=== PATIENT | male | born 1960 | race Caucasian/White ===

== ENCOUNTER → 2020-03-21 09:50 | Outpatient (CLI) | payer OTHER, SELFPAY ==
[2020-03-24 06:53] LABS: COVID19 Sendout Not Detected (Not Detect)
== END ==
PROVIDERS: PCP Family Medicine; Visit Provider Physician Assistant
DX: Z11.59 Encounter for screening for other viral diseases (principal)
CPT/HCPCS: 87635

== ENCOUNTER → 2020-03-21 10:05 | Outpatient (CLI) | payer OTHER, SELFPAY ==
[2020-03-21 11:24] LABS: Add Manual Diff / Slide Review NO; Basophils Absolute Auto 200 /uL (0-100); Basophils Percent Auto 2.2 % (0-2); Eosinophils Absolute Auto 500 /uL (0-450); Eosinophils Percent Auto 7.2 % (2-4); Hematocrit 37.5 % (41-53); Hemoglobin 12.9 g/dL (13.5-17.5); Lymphocytes Absolute Auto 1900 /uL (1100-4500); Lymphocytes Percent Auto 25.8 % (25-40); Mean Corpuscular HGB Conc 34.3 % (30-36); Mean Corpuscular Hemoglobin 30.4 PG (26-34); Mean Corpuscular Volume 88.6 fL (80-100); Monocytes Absolute Auto 600 /uL (0-900); Monocytes Percent Auto 7.5 % (3-14); Neutrophils Absolute Auto 4300 /uL (1500-7000); Neutrophils Percent Auto 57.3 % (50-75); Platelet Count 227 X10^3/uL (150-400); Red Blood Cell Count 4.23 X10^6/uL (4.5-5.9); Red Cell Distribution Width 12.8 % (11.6-14.8); White Blood Cell Count 7.5 X10^3/uL (4.5-11.0)
[2020-03-21 11:58] LABS: Hemoglobin A1C% w Est Avg Glu 5.3 % (4.0-6.0)
[2020-03-21 12:04] LABS: BUN Creatinine Ratio 13.2 (6-22); Blood Urea Nitrogen 23 mg/dL (9-20); Calcium 9.2 mg/dL (8.4-10.2); Carbon Dioxide 25 mmol/L (22-32); Chloride 110 mmol/L (98-107); Estimated Glomerular Filt Rate 40.2 mL/min (>60); Glucose 77 mg/dL (80-110); HEMOLYSIS < 15 (0-50); Potassium 3.9 mmol/L (3.4-5.1); Sodium 144 mmol/L (137-145)
== END ==
PROVIDERS: Referring Provider Orthopaedic Surgery; Visit Provider Orthopaedic Surgery
DX: Z11.59 Encounter for screening for other viral diseases (principal); Z01.812 Encounter for preprocedural laboratory examination; R73.9 Hyperglycemia, unspecified
CPT/HCPCS: 36415; 80048; 83036; 85025; 87635

== ENCOUNTER 2020-03-24 06:02 | Inpatient (IN) | payer OTHER, SELFPAY ==
[2020-03-10 13:50] VITALS: BMI 42.8
[2020-03-24] VITALS (18 sets, daily range): BP systolic 88–149; BP diastolic 55–99; PULSE 78–91; RESP 7–94; TEMP 35.8–37.5; O2SAT 10–98; BMI 42.8
[2020-03-24] MEDS: LACTATED RINGERS 1,000 ML 42 ML IV ×2 (07:14→09:17)
--- NOTE | 2020-03-24 07:24 | DI.RAD.S_ITS ---
PROCEDURE: XR KNEE LT 1TO2V INDICATIONS: Post op total knee TECHNIQUE: 2 view(s) of the knee acquired. COMPARISON: None. FINDINGS: Bones: Patient is status post knee joint arthroplasty. Hardware components are in expected positions. Visualized bony structures are intact. Soft tissues: Overlying postoperative changes are noted. IMPRESSION: Expected postoperative appearance Dictated by: Chucho Jaimes M.D. on 03/24/2020 at 11:59 Approved by: Chucho Jaimes M.D. on 03/24/2020 at 12:00
[2020-03-24] MEDS: CELECOXIB 200 MG CAPSULE PO (07:33)
[2020-03-24] MEDS: PREGABALIN 75 MG CAPSULE PO (07:33)
[2020-03-24] MEDS: ACETAMINOPHEN 325 MG TABLET 975 MG PO (07:33)
--- NOTE | 2020-03-24 07:33 | PM.PREOP ---
Pre-operative Note COVID-19 COVID-19 status: Negative Result date/Date tested (Pos, Neg/Pending): 03/21/20 Interval Note History & Physical reviewed/Exam performed by Physician: Yes Changes to H&P: No
[2020-03-24] MEDS: CEFAZOLIN 2 GM/100 ML FROZ.PIGGY IV (08:30)
--- NOTE | 2020-03-24 08:46 | SUR.OPER ---
Supine on padded OR bed. Pillow under head, arms secured on padded armboards <90 degree abduction. Safety belt across torso above ileostomy site. Non-operative leg secured with tape over blanket over lower leg. Operative leg secured in DeMayo positioner. Foam padded brace at thigh of operative leg.
[2020-03-24] MEDS: BUPIVACAINE 0.25% W/ EPI 30 ML VIAL 60 ML INJ (09:16)
[2020-03-24] MEDS: MORPHINE 4 MG/ML INJ INJ (09:16)
[2020-03-24] MEDS: BUPIVACAINE LIPOSOME 266 MG/20 ML VIAL INJ (09:16)
[2020-03-24] MEDS: TRANEXAMIC ACID 1,000 MG VIAL 1000 MG INJ ×2 (09:18→10:16)
--- NOTE | 2020-03-24 10:03 | SUR.OPER ---
ileostomy check at 0830, 0920, and 1002. No need to empty at those times. Will recheck when drapes are removed.
--- NOTE | 2020-03-24 10:42 | PM.OP.1 ---
Operative Date/Time/Diagnoses Date of procedure: 03/24/20 Time of procedure: 10:42 Pre-op diagnosis: Left knee posttraumatic osteoarthritis Post-op diagnosis: same Procedure & Clinicians Procedure: 1. Left total knee replacement 2. Removal of deep hardware (femoral and tibial screws) Same procedure as scheduled: Yes Indications: The patient has had progressively worsening left knee pain with radiographic changes consistent with arthritis. He has previously had an ACL reconstruction and has both tibial and femoral interference screws and a backup large fragment partially-threaded screw and washer on the femur. Non-operative management has failed and the patient has requested total knee replacement. The risks, benefits and alternatives to surgery were discussed with the patient prior to proceeding. Risks discussed included, but were not limited to, failure to relieve pain, stiffness, infection, nerve damage, deep venous thrombosis, pulmonary embolism, stroke, coma, heart attack, permanent paralysis and , as well as the potential need for eventual revision of the prosthetic. Surgeon: Mike Drew Finish Saw Operator: Igor Bullock Click Yes if Unassisted: No Anesthesia Type: General and Local Operative Notes Findings: Severe tricompartmental osteoarthritis with most severe findings in the medial side. The tibial screw and the femoral back up large frag screw did interfere with placement of the guides and prosthetics. Closure Type: primary Specimen(s): none sent Prosthetic devices, grafts, tissues, transplants, or devices: Implants used in this procedure were manufactured by the [employer] and [employer] and included the BCS II Journey total knee replacement with a size 6 Oxinium left femur, a size 6 left non porous tibial base plate, a 9 mm cross-linked polyethylene tibial insert and a 35 mm oval Suyapa II patellar component Applied: implant(s) Estimated Blood Loss (mL): 150 Blood products transfused: none Tourniquet time (min): 85 Procedure in detail: The patient was seen in the pre-operative area, where the left knee was identified as the operative site and this was marked with my initials. The patient received pre-operative antibiotics, and was taken to the operating room and placed on the operative table in the supine position. After satisfactory anesthesia, a excellence coach out was performed. The left leg was encircled with a tourniquet about the proximal thigh, and the leg was prepared from the toes to the tourniquet with ChloroPrep in the usual fashion and draped through sterile drapes. The leg was elevated and exsanguinated with Eschmark bandage and the tourniquet inflated to 250 mmHg pressure. The knee was approached through an approximately 18 cm incision centered over the patella and carried into the knee through a medial parapatellar arthrotomy. The anterior osteophytes and soft tissues were removed. The rotational landmarks of Stephen's line and the transepicondylar axis were marked on the femur with electrocautery, and intramedullary guide holes for the femur and tibia were created. In attempting to make the femoral hole, the drill made contact with the screw crossing across the metaphysis. This was exposed by going down the lateral side of the femur through the standard total knee incision. The screw proved somewhat difficult to remove as the threads did not bite the lateral cortex and therefore it stripped and did not advance. A stab wound was made more in line with the screw to the held during this part of the procedure but eventually the screw was removed through the standard incision in by putting traction on the screw with a Cyclone while removing it and getting it to engage the threads in the cortex. The spiked washer was also removed. The distal femoral cut was made in 6 degrees of valgus using the intramedullary guide at the primary cut setting. The proximal tibial cut was then made using the intramedullary guide, taking 9 mm of bone off the less involved side. The cut was initiated and then it made contact with the tibial interference screw. The area around the screw was exposed by cutting a sq out of the resected tibial bone to expose the screw which was then easily removed. The tibial cut was then completed. The extension gap was checked and the rotation of the femoral component confirmed with the gap balancing blocks, flexion was somewhat tight so we did move the femoral prosthetic 1 mm anterior. The anterior, posterior and chamfer cuts were then made. The posterior osteophytes and soft tissues were then removed. The posterior capsule was injected with part of a mixture of 60 ml 0.25% Marcaine mixed with 20 ml Exparel and 4 mg of morphine for post-operative pain control. The remainder of this mixture was injected into the capsule and subcutaneous tissues during cement curing. The tibia was prepared with the rotation set by an extra medullary guide. Trial tibial and femoral components were then placed and the intercondylar notch cut through the femoral trial. The remaining femoral interference screw did not interfere with this. Range of motion was 0-135 degrees, with good stability throughout the range. The patella was then cut to accommodate the patellar prosthetic. There was a tendency for the patella to dislocate laterally in deep flexion so a lateral release was performed using the ?pie crust technique?. This considerably improved patellar tracking. The trials were then removed, and the femoral hole plugged with a bone plug. The bone was prepared with pulsatile lavage, and dried with a sponge. Cement was applied and the final prosthetics placed. Excess cement was removed during and after cement curing. After confirming there was no extruded cement posteriorly, the final tibial insert was placed. The knee was copiously irrigated and the tourniquet deflated. Hemostasis was obtained. The capsule was closed with interrupted # 2 polyester sutures. The subcutaneous layer was closed with 3-0 Vicryl, and the skin with a running 3-0 V-Lock suture and SteriStrips. An Aquacel Ag dressing was applied and the patient was taken to recovery having tolerated the procedure well. Complications: none Post-operative Condition: stable Disposition: PACU Plan for aftercare: The patient will be maintained on a standard total knee replacement protocol with weight bearing as tolerated. The patient will receive aspirin and sequential compression devices for DVT prophylaxis. The patient will be discharged home when safe for the home environment.
--- NOTE | 2020-03-24 11:19 | SUR.PHASEI ---
Patient woke up very confused and moving all over the bed. Attempting to help patient relax, but patient pushes away all care. Will not keep nasal canula in on face, used blow by O2 and patient tolerating it better.
[2020-03-24] MEDS: BUTORPHANOL 1 MG/ML VIAL 0.5 MG IV (11:29)
[2020-03-24] MEDS: fentaNYL 100 MCG/2 ML INJ IV (11:40)
[2020-03-24] MEDS: ALBUTEROL 2.5 MG/3 ML NEB (ADULT) INH (11:44)
--- NOTE | 2020-03-24 13:19 | SUR.PHASEI ---
Apnea resolved. Pt alert and oriented. VSS.
[2020-03-24] MEDS: LACTATED RINGERS 1,000 ML 100 ML IV ×2 (13:40→23:31)
[2020-03-24] MEDS: OXYCODONE IR 5 MG TABLET PO ×2 (14:53→19:00)
[2020-03-24] MEDS: ACETAMINOPHEN 325 MG TABLET 650 MG PO ×2 (14:53→21:17)
--- NOTE | 2020-03-24 15:47 | PC.NURSE ---
Patient arrived from PACU approx 1330, oriented to room and call light with call light placed within reach. VSS, on 2L NC, denies shortness of breath. States his pain level to his left knee is about a 7/10 which he reports is about the level of pain he has been having chronically from the arthritis in his knee, ice packs in place and declines further intervention at that time. Patient is eager to get moving with PT. patient has +CMS, and able to bend and lift left leg off bed. Ileostomy with appliance in place and intact to Right abdomen. LINDSEY dressing with RAF wrap to left knee in place without drainage. Urinal within reach, monitor for void post op, patient denies need to void at this time.
--- NOTE | 2020-03-24 16:46 | PT.IIE ---
Current Diagnoses Unilateral post-traumatic osteoarthritis, left knee (03/24/20) Surgery Performed Operation Date: 03/24/20 07:45 Actual Procedures p Total Knee Arthroplasty, removal of deep screws(Left) - Mike Drew MD Surgical History (Last Updated 03/10/20 @ 14:23 by Valeri Flowers, SAM) History of left knee surgery (Acute ~05/1990) Hx of arthroscopy of left knee (Acute) Hx of arthroscopy of right knee (Acute ~2005) Hx of ileostomy (Acute 1983) Medical History (Last Updated 03/10/20 @ 14:29 by Valeri Flowers RN) Asthma (Acute) Brain injury (Acute 1978) HTN (hypertension) (Acute) Laceration (Acute 1978) Osteoarthritis (Acute) Physical Therapy Inpatient Evaluation/Re-Eval M1 PT/OT-IP Prior Functional Status Start: 03/24/20 15:02 Freq: NEEDED Status: Active Protocol: Document 03/24/20 16:09 (Rec: 03/24/20 16:45 [id number]) Medical Review Prior Functional Status Medical History Reviewed Yes Diet/Fluid Consistency Regular Communication no deficits noted. Mobility and Gait independent witohut AD for home and community mobility. Activities of Daily Living and IADL's independent for ADLs and IADLs without AD. pt had a colonstomy sx 35 years ago and has a colonstomy bag so he does not sit down for toileting. Prior Functional Level (Other details) Pt stated he has a very low bed at home that will need assistance from son to stand up after surgery Social History Household Members children Living Arrangements House Number of Floors (Floors) One Floor Number of Stairs To Enter/Railing? 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 Pt's sister and brother in law live 6 houses down and will able to come in to assist after work hours. 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 M2 PT-IP Current Condition Start: 03/24/20 15:02 Freq: NEEDED Status: Active Protocol: Document 03/24/20 16:09 (Rec: 03/24/20 16:45 [id number]) Physical Therapy Current Condition Current Condition Evaluation Date 03/24/20 Treatment Diagnosis L TKA, difficulty in walking Onset Date 03/24/20 Weight Bearing Status Weight Bearing Status Weight Bear as Tolerated M3 PT-IP Subjective Start: 03/24/20 15:02 Freq: NEEDED Status: Active Protocol: Document 03/24/20 16:09 (Rec: 03/24/20 16:45 [id number]) Subjective Physical Therapy Visit Type Type Initial Evaluation Visit Start Time 15:05 Visit Stop Time 16:05 Total Visit Minutes 60 Notes sister Rebecca attended session. Number of SEO COORDINATOR Visits 0 Physical Therapy Visit Comments Patient Comments I want to use the bathroom Patient Goals To regain ROM and mobility and go home. Therapy Pain Assessment Pain When Pain Assessed During Mobility Pain Present Pain Present Pain Reported Location Knee Intensity 5 Scale Used Numeric (0 - 10) Description Aching,Acute Pain Management Techniques Timing of Activity with Medications M4 PT-IP Mobility and Gait Start: 03/24/20 15:02 Freq: NEEDED Status: Active Protocol: Document 03/24/20 16:09 (Rec: 03/24/20 16:45 [id number]) PT-Bed Mobility Assessment Supine to Sit Supine to Sit Contact Guard Assistance, Bedrails Scooting Scooting to Edge of Bed Contact Guard Assistance PT-Transfer Assessment Sit to and From Stand Sit to and from Stand Moderate Assistance,1 Person Assistance,Use of Upper Extremities Equipment Transfer Assistive Device Gait Belt,Front Wheeled Walker Orthotic/Prosthetic Devices or Brace: No Transfers Transfer Destination Bed,Chair,Toilet Transfer Technique Stand Step Pivot Transfer Ability Level of Assist Minimal Assistance,Moderate Assistance,Use of Upper Extremities Comments Mobility Comments Pt was in bed upon PT arrival. pain at 5/10 but no other discomfort. AxOx 4 and pt was very talkative regarding POC, role of PT, types of therex. Pt initially completed supine to long sit by pulling from R bed rail. He then slowly pivot his LLE towards EOB CGA. He scooted towards EOB slowly and his L knee was able to flex up to ~90 degrees. Pt then stood up with a stagger stance with 1UE pushed off from bed and pulled from FWW, this PT needed to stabilize his walker and provided mod A. He then practiced lateral weight shift with FWW CGA. Pt was able to amb slowly after with step to gait and mostly WB through UEs and RLE. He slowly amb to bathroom with CGA and able to void minimally in standing. Pt also disposed his waste from colostomy bag. He then turned around with FWW and slowly amb back to chair. He was able to slowly increase WB through LLE and pain managed to be at 5/10. Pt then sat down with proper use of handrests to descend with a stagger stance. Pt overall was quite SOB during mobility but able to recover in a short period of time. Pt sat in chair comfortably with call light within reach. Spent approx 20 mins after to answer pt's and his sister questions. Gait Assessment Gait Gait Assistance Required: Contact Guard Assist Distance (Feet) 8 Able to Maintain Weight Bearing Status Yes During Gait Assistive Devices Assistive Device Gait Belt,Front Wheeled Walker Orthotic/Prosthetic Devices or Brace: No Gait Deviations General Gait Pattern Antalgic,Decreased Stride Length,Decreased Feet Clearance,Festinating,Lateral Trunk Lean,Step-to Gait Factors Limiting Gait Function Factors Limiting Gait Function Decreased Activity Tolerance, Decreased Strength,Limited Range of Motion,Pain,Poor Balance,Poor Safety Awareness, Respiratory Distress Comments Gait Comments see mobility comments. Stair Climbing Assessment Comments Stair Climbing Comments did not assess PT-Balance Assessment Sitting Balance and Reactions Static Sitting Balance Ability Normal Dynamic Sitting Balance Ability Good Standing Balance and Reactions Static Standing Balance Ability Good Dynamic Standing Balance Ability Fair Device Used FWW M5 PT-IP Objective Assessments Start: 03/24/20 15:02 Freq: NEEDED Status: Active Protocol: Document 03/24/20 16:09 (Rec: 03/24/20 16:45 [id number]) Orientation Orientation/Cognition Level of Alertness Alert Orientation Name,Age,Birthday,Month,Date, Year,Day of Week,Place, Situation Language Function Ability No Deficits Noted Safety Awareness Understands Safety Issues Memory Description No Deficits Noted Gross Range of Motion Upper Extremity ROM Assessment Within Functional Limits Lower Extremity ROM Assessment Left Impaired Impairments ~ 90 degrees with active flexion Strength Upper Extremity Strength Assessment Within Functional Limits Lower Extremity Strength Assessment Left Impaired Hip 4/5 Knee 3-/5 Coordination Assessment Gross Coordination Gross Coordination WNL Sensation Assessment Sensation Gross Sensation WNL M6 PT-IP Treatment Start: 03/24/20 15:02 Freq: NEEDED Status: Active Protocol: Document 03/24/20 16:09 (Rec: 03/24/20 16:45 [id number]) Physical Therapy Treatment Exercises Exercises Ankle Pumps,Gluteal Sets,Quad Sets,Straight Leg Raises Education Education Provided Precautions,Weight Bearing Status,Post-Op Packet,Safety Other Treatments Other Treatment Performed education pt and his sister on POC, role of PT, types of rehab therex. Demonstration to them regarding how to educate pt's son to assist pt at home : use gait belt above abdomen and stand either in front/ L side to provide assistance during sit <>stand M7 PT-IP Assessment and Plan Start: 03/24/20 15:02 Freq: NEEDED Status: Active Protocol: Document 03/24/20 16:09 (Rec: 03/24/20 16:45 [id number]) PT Summary Assessment and Plan Potential Rehabilitation Potential Good Status of Condition at Evaluation Evolving Summary Impairments Pain,ROM,Strength,Balance, Coordination,Sensation,Bed Mobility,Transfers,Gait, Activity Tolerance Assessment Summary Pt is a 59 yo male s/p POD1 L TKA. 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 Upon assessment, pt required min to mod A for mobility. He primarily WB through RLE and UEs on walker but his pain was well managed at 5/10. However, pt'son has intellectual disability and pt 's bed and chair are mostly low surfaces, along with 4 CHANDA for front entrance. These factors increase burden of care from his son. This PT will conduct a CG training session with pt's sister ( visitor restriction d/t YOVANNY) so both of them can transfer CG skills to his son. Pt also might need home health depends on his progress. Goals Bed Mobility Goal Contact Guard Assistance Transfer Goal Contact Guard Assistance,Front Wheeled Walker Gait Goal Front Wheel Walker Gait Distance 100 Other Goals 4 CHANDA with R rail up and L rail down. SPC might be needed Days to Meet Goals 3 Frequency of Treatment Frequency Of Treatment Twice a Day Treatment Plan Physical Therapy Treatment Plan Bed Mobility Training,Transfer Training,Gait Training, Therapeutic Exercise,Balance Retraining,Post Op Education, Discharge Planning,Hot or Cold Pack,Neuromuscular Re-ed Other Recommendations and Next Treatment mobility as venessa Focus stair climbing if possible 4 CHANDA with R rail up and L rail down. SPC might be needed Recommendations To Nursing Amount of Assist Needed 1 Person Assist Discharge Recommendations PT Discharge Recommendations Home with Assistance,Home Health,Outpatient PT Transportation Needs at Discharge Private Vehicle
[2020-03-24] MEDS: LOSARTAN 50 MG TABLET 100 MG PO (21:16)
[2020-03-24] MEDS: ASPIRIN EC 81 MG TABLET PO (21:16)
--- NOTE | 2020-03-24 21:39 | PC.NURSE ---
Shift note: Pt awake, alert and oriented x4 - up to chair for most of this shift. Pain controlled with Tylenol and oxy 5mg x1. CMS to L leg intact, LINDSEY dressing dry and intact without visible drainage, rosanna wrap maintained and ice bags to L knee for comfort. IV in progress, LR @ 100me/hr, taking oral liquids well and had gen diet for dinner. Pt manages his ostomy without difficulty.
[2020-03-24] MEDS: DOCUSATE 100 MG CAPSULE PO (23:31)
[2020-03-25 00:33] VITALS: BP 92/53; PULSE 79; RESP 20; TEMP 36.7; O2SAT 94
[2020-03-25 03:59] VITALS: BP 139/68; PULSE 96; RESP 20; TEMP 35.9; O2SAT 98
[2020-03-25 05:06] LABS: Hematocrit 31.9 % (41-53); Hemoglobin 10.7 g/dL (13.5-17.5)
[2020-03-25] MEDS: ACETAMINOPHEN 325 MG TABLET 650 MG PO ×2 (05:06→12:59)
[2020-03-25 07:52] VITALS: BP 116/61; PULSE 83; RESP 18; TEMP 36.7; O2SAT 99
--- NOTE | 2020-03-25 07:58 | PM.DS.1 ---
History of Present Illness History of Present Illness Date Patient Seen: 03/25/20 Time Patient Seen: 07:58 Chief complaint: Left Total Knee Arthroplasty Narrative: The history and physical is contained in the chart previously completed note. Please refer to that note for this information. Discharge Providers Provider Date of admission: 03/24/20 06:02 Discharge Date: 03/25/20 Primary care physician: Monique Meza MD Consults: 03/24/20 07:24 Consult to Anesthesiology Routine Comment: Consulting Provider: Anesthesiologist Reason for consultation: Regional block for post operative pain control 03/24/20 13:30 Consult to Discharge Planning Routine Comment: Consult to Physical Therapy Evaluate & Treat Comment: Physician Instructions: postop TKA protocol Discharge provider: Mike Drew MD Summary Hospital Course Discharge Diagnosis: 1. Posttraumatic arthritis, left knee 2. Post hemorrhagic anemia Hospital Course: The patient was admitted to the hospital and taken directly to the operating room on March 24, 2020. He underwent a left total knee replacement with removal of previously placed anterior cruciate ligament reconstruction hardware. He tolerated the procedure well and was comfortable on postoperative day 1. At the time of this dictation the plan is for him to go home later today after physical therapy. Status at Discharge Cognitive/behavioral status at discharge: oriented Functional status at discharge: uses cane/walker Overall status at discharge: patient is progressing back to baseline Time Spent with Patient Time spent: Less than 30 minutes Exam Vital Signs (past 8 hours): - 03/25/20 00:33 03/25/20 03:59 03/25/20 07:52 Temperature 98.1 F 96.7 F L 98.0 F Pulse Rate 79 96 H 83 Respiratory Rate 20 20 18 Blood Pressure 92/53 L 139/68 116/61 Pulse Oximetry 94 98 99 Oxygen Delivery Method Room Air Oxygen Flow Rate 0 Narrative Exam Narrative: Left knee wound is dressed with minimal drainage on the bandage. Calf is soft. Light touch and motion are intact in the left lower extremity. He is sitting in a chair demonstrating 90? flexion at the time of the exam. Objective Labs Result Diagrams: 03/25/20 04:45 Labs: Laboratory Results - last 24 hr 03/25/20 04:45 Hgb 10.7 L Hct 31.9 L Discharge Assessment & Plan Assessment and Plan Assessment: Stable postoperative day 1 status post left total knee replacement and removal of hardware. Plan of Treatment: Plan is for physical therapy today with likely discharge later in the day. Follow-up will be at my office in 10-14 days. Discharge prescriptions for oxycodone and Vistaril are on the chart. DVT prophylaxis will be with low-dose aspirin. Discharge Plan Discharge Plan Patient Disposition: Home Discharge orders & Medications Prescriptions: New acetaminophen 325 mg Tablet 650 mg PO TID 30 Days Qty: 180 RF: 0 aspirin 81 mg Tablet,Delayed Release (Dr/Ec) 81 mg PO BID 42 Days Qty: 84 RF: 0 oxycodone 5 mg Tablet 5 mg PO Q4H PRN (Reason: Pain, Moderate (4-6)) Qty: 40 RF: 0 hydroxyzine pamoate 25 mg Capsule 25 mg PO Q6HR PRN (Reason: Nausea) Qty: 30 RF: 0 Continued losartan 50 mg Tablet 100 mg PO BEDTIME RF: 0 meloxicam 15 mg Tablet 15 mg PO DAILY RF: 0 chlorthalidone 25 mg Tablet 12.5 mg PO DAILY RF: 0 tamsulosin 0.4 mg Capsule 0.4 mg PO DAILY RF: 0 albuterol sulfate 90 mcg/actuation Hfa Aerosol Inhaler 2 puff INHALATION Q4-6H PRN (Reason: Shortness Of Breath) RF: 0 Discontinued aspirin 81 mg Tablet,Delayed Release (Dr/Ec) 81 mg PO DAILY RF: 0 ibuprofen 200 mg Tablet 800 mg PO QID PRN (Reason: Pain (Scale Score 1-3)) RF: 0 Follow up/Referrals: Mike Drew MD [Physician] - 2 Weeks Monique Meza MD [Primary Care Provider] - Diet/Activity/Treatments Diet: Diet as Tolerated and Regular Activity: You may bear weight as tolerated on your left leg. Cold/Heat Therapy: Apply ice for 15 minutes every hour as needed for pain control to the left knee. Skin/Wound/Dressing Care Report to your healthcare provider any signs of infection, such as:: chills, fever, night sweats, increased pain, unusual drainage and unusual redness Dressing: Remove the Chano wrap and 3 days. You may shower with the deeper dressing in place. If the deeper dressing becomes saturated with either water or blood, please call the office. Visit Report/Discharge Packet Instructions: DI for Knee Replacement, DI for Prescription Opioid Use Stand Alone Forms: Surgery Discharge Discharge Data Primary Care Provider: Monique Meza VTE Deep Vein Thrombosis/Pulmonary Embolism Present on Admission: No
[2020-03-25] MEDS: ASPIRIN EC 81 MG TABLET PO (09:00)
[2020-03-25] MEDS: TAMSULOSIN 0.4 MG CAPSULE PO (09:01)
[2020-03-25] MEDS: MELOXICAM 7.5 MG TABLET 15 MG PO (09:01)
[2020-03-25] MEDS: CHLORTHALIDONE 25 MG TABLET 12.5 MG PO (09:02)
--- NOTE | 2020-03-25 12:18 | PT.IPTN ---
Current Diagnoses Unilateral post-traumatic osteoarthritis, left knee (03/24/20) Surgery Performed Operation Date: 03/24/20 07:45 Actual Procedures p Total Knee Arthroplasty, removal of deep screws(Left) - Mike Drew MD Physical Therapy Treatment Note M2 PT-IP Current Condition Start: 03/24/20 15:02 Freq: NEEDED Status: Active Protocol: Document 03/24/20 16:09 (Rec: 03/24/20 16:45 [id number]) Physical Therapy Current Condition Current Condition Evaluation Date 03/24/20 Treatment Diagnosis L TKA, difficulty in walking Onset Date 03/24/20 Weight Bearing Status Weight Bearing Status Weight Bear as Tolerated M3 PT-IP Subjective Start: 03/24/20 15:02 Freq: NEEDED Status: Active Protocol: Document 03/25/20 12:06 (Rec: 03/25/20 12:18 [id number]) Subjective Physical Therapy Visit Type Type Treatment Note Visit Start Time 09:34 Visit Stop Time 10:05 Total Visit Minutes 29 Number of NURSERY SUPERVISOR Visits 0 Physical Therapy Visit Comments Patient Comments I want to use the bathroom Patient Goals To regain ROM and mobility and go home. Therapy Pain Assessment Pain When Pain Assessed During Mobility Pain Present Pain Present Pain Reported Location Knee Intensity 3 Scale Used Numeric (0 - 10) Description Aching,Acute Pain Management Techniques Timing of Activity with Medications M4 PT-IP Mobility and Gait Start: 03/24/20 15:02 Freq: NEEDED Status: Active Protocol: Document 03/25/20 12:06 (Rec: 03/25/20 12:18 [id number]) PT-Transfer Assessment Sit to and From Stand Sit to and from Stand Contact Guard Assistance,1 Person Assistance,Use of Upper Extremities Equipment Transfer Assistive Device Gait Belt,Front Wheeled Walker Orthotic/Prosthetic Devices or Brace: No Transfers Transfer Destination Bed,Chair,Toilet Transfer Technique Stand Step Pivot Transfer Ability Level of Assist Contact Guard Assistance,1 Person Assistance,Use of Upper Extremities Comments Mobility Comments Pt was in the chair with ice packs on L knee. Pain at 3/10 and requested to use bathroom. Pt stood up with CGA by pushing off from chair armrests. He then amb with step to pattern and got to the front of toilet. Pt voided and emptied his ostomy. He then amb towards hallway and completed 1 lap of [facility]. Pt stated that he was able to WB 80% of the weight on LLE but he needed cues for heel strike. After that, t was w/c to end of [facility] [employer] [facility] for stair climbing .Pt completed 2 sets of 3 steps by using R rail and SPC on L UE to ascend; R rail and SPC on LUE to descend . Pt used step to pattern with CGA but slowly. He was w/c back to his room and used FWW to complete stand step pivot transfer to chair. Reviewed therex and call ligth placed within reach. Gait Assessment Gait Gait Assistance Required: Standby Assistance,Contact Guard Assist Distance (Feet) 130 Able to Maintain Weight Bearing Status Yes During Gait Assistive Devices Assistive Device Gait Belt,Front Wheeled Walker Orthotic/Prosthetic Devices or Brace: No Gait Deviations General Gait Pattern Antalgic,Decreased Stride Length,Decreased Feet Clearance,Festinating,Lateral Trunk Lean,Step-to Gait Factors Limiting Gait Function Factors Limiting Gait Function Decreased Activity Tolerance, Decreased Strength,Limited Range of Motion,Pain,Poor Balance,Poor Safety Awareness, Respiratory Distress Comments Gait Comments see mobility comments. Stair Climbing Assessment Evaluation Level of Assist On Stairs Contact Guard Assistance Devices Stair Climbing Assistive Devices Straight Cane,Right Railing Technique/Endurance Stair Climbing Direction Ascend and Descend Stair Climbing Technique Step to Step Number of Steps Climbed 3 Stair Climbing Set # Repetitions (reps) 2 Comments Stair Climbing Comments see mobility comments. PT-Balance Assessment Sitting Balance and Reactions Static Sitting Balance Ability Normal Dynamic Sitting Balance Ability Good Standing Balance and Reactions Static Standing Balance Ability Good Dynamic Standing Balance Ability Good Device Used FWW M5 PT-IP Objective Assessments Start: 03/24/20 15:02 Freq: NEEDED Status: Active Protocol: Document 03/24/20 16:09 (Rec: 03/24/20 16:45 [id number]) Orientation Orientation/Cognition Level of Alertness Alert Orientation Name,Age,Birthday,Month,Date, Year,Day of Week,Place, Situation Language Function Ability No Deficits Noted Safety Awareness Understands Safety Issues Memory Description No Deficits Noted Gross Range of Motion Upper Extremity ROM Assessment Within Functional Limits Lower Extremity ROM Assessment Left Impaired Impairments ~ 90 degrees with active flexion Strength Upper Extremity Strength Assessment Within Functional Limits Lower Extremity Strength Assessment Left Impaired Hip 4/5 Knee 3-/5 Coordination Assessment Gross Coordination Gross Coordination WNL Sensation Assessment Sensation Gross Sensation WNL M6 PT-IP Treatment Start: 03/24/20 15:02 Freq: NEEDED Status: Active Protocol: Document 03/24/20 16:09 (Rec: 03/24/20 16:45 [id number]) Physical Therapy Treatment Exercises Exercises Ankle Pumps,Gluteal Sets,Quad Sets,Straight Leg Raises Education Education Provided Precautions,Weight Bearing Status,Post-Op Packet,Safety Other Treatments Other Treatment Performed education pt and his sister on POC, role of PT, types of rehab therex. Demonstration to them regarding how to educate pt's son to assist pt at home : use gait belt above abdomen and stand either in front/ L side to provide assistance during sit <>stand M7 PT-IP Assessment and Plan Start: 03/24/20 15:02 Freq: NEEDED Status: Active Protocol: Document 03/25/20 12:06 (Rec: 03/25/20 12:18 [id number]) PT Summary Assessment and Plan Potential Rehabilitation Potential Good Status of Condition at Evaluation Stable Summary Impairments Pain,ROM,Strength,Balance, Coordination,Sensation,Bed Mobility,Transfers,Gait, Activity Tolerance Assessment Summary Pt has improved with amb distance and less assistance needed. He also completed stair climbing with 1 rail and SPC CGA. Will conduct CG training with his sister at 1 pm today prior to d/c Goals Bed Mobility Goal Contact Guard Assistance Transfer Goal Contact Guard Assistance,Front Wheeled Walker Gait Goal Front Wheel Walker Gait Distance 100 Other Goals 4 CHANDA with R rail up and L rail down. SPC might be needed Days to Meet Goals 3 Frequency of Treatment Frequency Of Treatment Twice a Day Treatment Plan Physical Therapy Treatment Plan Bed Mobility Training,Transfer Training,Gait Training, Therapeutic Exercise,Balance Retraining,Post Op Education, Discharge Planning,Hot or Cold Pack,Neuromuscular Re-ed Other Recommendations and Next Treatment mobility as venessa Focus stair climbing if possible 4 CHANDA with R rail up and L rail down. SPC might be needed Recommendations To Nursing Amount of Assist Needed 1 Person Assist Discharge Recommendations PT Discharge Recommendations Home with Assistance, Outpatient PT Transportation Needs at Discharge Private Vehicle
--- NOTE | 2020-03-25 13:37 | PT.IPTN ---
Current Diagnoses Unilateral post-traumatic osteoarthritis, left knee (03/24/20) Surgery Performed Operation Date: 03/24/20 07:45 Actual Procedures p Total Knee Arthroplasty, removal of deep screws(Left) - Mike Drew MD Physical Therapy Treatment Note M2 PT-IP Current Condition Start: 03/24/20 15:02 Freq: NEEDED Status: Active Protocol: Document 03/24/20 16:09 HH (Rec: 03/24/20 16:45 [id number]) Physical Therapy Current Condition Current Condition Evaluation Date 03/24/20 Treatment Diagnosis L TKA, difficulty in walking Onset Date 03/24/20 Weight Bearing Status Weight Bearing Status Weight Bear as Tolerated M3 PT-IP Subjective Start: 03/24/20 15:02 Freq: NEEDED Status: Active Protocol: Document 03/25/20 13:31 HH (Rec: 03/25/20 13:37 [id number]) Subjective Physical Therapy Visit Type Type Treatment Note Visit Start Time 13:02 Visit Stop Time 13:26 Total Visit Minutes 24 Notes pt sister attended CG training session Number of DATABASE SECURITY ADMINISTRATOR Visits 0 Physical Therapy Visit Comments Patient Comments Im ready to go home Therapy Pain Assessment Pain When Pain Assessed During Mobility Pain Present Pain Present Pain Reported M4 PT-IP Mobility and Gait Start: 03/24/20 15:02 Freq: NEEDED Status: Active Protocol: Document 03/25/20 13:31 HH (Rec: 03/25/20 13:37 [id number]) PT-Transfer Assessment Sit to and From Stand Sit to and from Stand Contact Guard Assistance,1 Person Assistance,Use of Upper Extremities Equipment Transfer Assistive Device Gait Belt,Front Wheeled Walker Orthotic/Prosthetic Devices or Brace: No Transfers Transfer Destination Bed,Chair Transfer Technique Stand Step Pivot Transfer Ability Level of Assist Contact Guard Assistance,1 Person Assistance,Use of Upper Extremities Comments Mobility Comments Pt was in chair upon PT arrival. His sister at bedside . Pt stood up with FWW with CGA and transferred himself to W/C safely. He was w/c to staircase for CG training. Pt completed 2 sets of 3 steps with R rail up and LUE with SPC ; R rail down with SPC on LUE. Pt completed it slowly with proper sequence and foot placement. No signs of LOB. Sister able to maintain CGA throught the trail. They both felt safe at this point. Pt was then w/c back to his room . Stair Climbing Assessment Evaluation Level of Assist On Stairs Contact Guard Assistance Devices Stair Climbing Assistive Devices Straight Cane,Right Railing Technique/Endurance Stair Climbing Direction Ascend and Descend Stair Climbing Technique Step to Step Number of Steps Climbed 3 Stair Climbing Set # Repetitions (reps) 2 Comments Stair Climbing Comments pt completed 1st trial with PT then 2nd trial with sister. Pt was safe but completed it slowly. Recommended pt to acquire quad cane to improve stability if needed. PT-Balance Assessment Sitting Balance and Reactions Static Sitting Balance Ability Normal Dynamic Sitting Balance Ability Good Standing Balance and Reactions Static Standing Balance Ability Good Dynamic Standing Balance Ability Good Device Used FWW M5 PT-IP Objective Assessments Start: 03/24/20 15:02 Freq: NEEDED Status: Active Protocol: Document 03/24/20 16:09 (Rec: 03/24/20 16:45 [id number]) Orientation Orientation/Cognition Level of Alertness Alert Orientation Name,Age,Birthday,Month,Date, Year,Day of Week,Place, Situation Language Function Ability No Deficits Noted Safety Awareness Understands Safety Issues Memory Description No Deficits Noted Gross Range of Motion Upper Extremity ROM Assessment Within Functional Limits Lower Extremity ROM Assessment Left Impaired Impairments ~ 90 degrees with active flexion Strength Upper Extremity Strength Assessment Within Functional Limits Lower Extremity Strength Assessment Left Impaired Hip 4/5 Knee 3-/5 Coordination Assessment Gross Coordination Gross Coordination WNL Sensation Assessment Sensation Gross Sensation WNL M6 PT-IP Treatment Start: 03/24/20 15:02 Freq: NEEDED Status: Active Protocol: Document 03/24/20 16:09 (Rec: 03/24/20 16:45 [id number]) Physical Therapy Treatment Exercises Exercises Ankle Pumps,Gluteal Sets,Quad Sets,Straight Leg Raises Education Education Provided Precautions,Weight Bearing Status,Post-Op Packet,Safety Other Treatments Other Treatment Performed education pt and his sister on POC, role of PT, types of rehab therex. Demonstration to them regarding how to educate pt's son to assist pt at home : use gait belt above abdomen and stand either in front/ L side to provide assistance during sit <>stand M7 PT-IP Assessment and Plan Start: 03/24/20 15:02 Freq: NEEDED Status: Active Protocol: Document 03/25/20 13:31 HH (Rec: 03/25/20 13:37 [id number]) PT Summary Assessment and Plan Potential Rehabilitation Potential Good Status of Condition at Evaluation Stable Summary Impairments Pain,ROM,Strength,Balance, Coordination,Sensation,Bed Mobility,Transfers,Gait, Activity Tolerance Progress Towards Goals Safe For Discharge Assessment Summary Completed CG training with pt' s sister. Pt completed stair climbing 3 steps x 2 set safely but slowly. Did recommend to get quad cane for better support if needed. They both felt safe to go home at this point. Frequency of Treatment Frequency Of Treatment Discharge Discharge Recommendations PT Discharge Recommendations Home with Assistance, Outpatient PT Transportation Needs at Discharge Private Vehicle
== END 2020-03-25 13:30 | disposition home or self-care (01) | DRG 470 ==
LOC: AC 09:09 → ICU 10:12
PROVIDERS: Admitting Provider Orthopaedic Surgery; PCP Family Medicine; Referring Provider Family Medicine; Visit Provider Orthopaedic Surgery
PROC: 0SRD0JZ Replacement of Left Knee Joint with Synthetic Substitute, Open Approach (ICD-10-PCS; CPT 27447; principal; 2020-03-24 07:45)
DX: M17.32 Unilateral post-traumatic osteoarthritis, left knee (principal); Z68.41 Body mass index [BMI] 40.0-44.9, adult; I10 Essential (primary) hypertension; J45.909 Unspecified asthma, uncomplicated; E66.01 Morbid (severe) obesity due to excess calories
CPT/HCPCS: 36415; 73560; 85014; 85018; 97116; 97161; 97530; 97535; C1776; A9270; C9290; J0595; J0690; J1100; J1170; J2250; J2270; J2405; J2704; J3010; J7613

== ENCOUNTER → 2020-05-27 10:25 | Outpatient (CLI) | payer OTHER, SELFPAY ==
[2020-03-24 14:33] VITALS: BMI 42.8
[2020-05-27 11:41] LABS: Add Manual Diff / Slide Review NO; Basophils Absolute Auto 200 /uL (0-100); Basophils Percent Auto 2.1 % (0-2); Eosinophils Absolute Auto 600 /uL (0-450); Eosinophils Percent Auto 7.6 % (2-4); Hematocrit 39.6 % (41-53); Lymphocytes Absolute Auto 1700 /uL (1100-4500); Lymphocytes Percent Auto 23.1 % (25-40); Mean Corpuscular HGB Conc 32.9 % (30-36); Mean Corpuscular Hemoglobin 29.3 PG (26-34); Mean Corpuscular Volume 89.1 fL (80-100); Monocytes Absolute Auto 500 /uL (0-900); Monocytes Percent Auto 7.2 % (3-14); Neutrophils Absolute Auto 4500 /uL (1500-7000); Platelet Count 257 X10^3/uL (150-400); Red Blood Cell Count 4.45 X10^6/uL (4.5-5.9); Red Cell Distribution Width 13.1 % (11.6-14.8); White Blood Cell Count 7.6 X10^3/uL (4.5-11.0)
[2020-05-27 12:02] LABS: BUN Creatinine Ratio 15.2 (6-22); Blood Urea Nitrogen 25 mg/dL (9-20); Calcium 8.9 mg/dL (8.4-10.2); Carbon Dioxide 23 mmol/L (22-32); Chloride 113 mmol/L (98-107); Estimated Glomerular Filt Rate 43.1 mL/min (>60); Glucose 92 mg/dL (80-110); HEMOLYSIS < 15 (0-50); Potassium 4.2 mmol/L (3.4-5.1); Sodium 142 mmol/L (137-145)
== END ==
PROVIDERS: Referring Provider Orthopaedic Surgery; Visit Provider Orthopaedic Surgery
DX: Z01.812 Encounter for preprocedural laboratory examination (principal)
CPT/HCPCS: 36415; 80048; 85025

== ENCOUNTER → 2020-06-14 08:37 | Outpatient (CLI) | payer OTHER, SELFPAY ==
[2020-03-24 14:33] VITALS: BMI 42.8
[2020-06-14 09:41] LABS: COVID19 -Nasal RAPID Negative (Negative)
== END ==
PROVIDERS: Visit Provider Physician Assistant
DX: Z11.59 Encounter for screening for other viral diseases (principal)
CPT/HCPCS: 87635

== ENCOUNTER 2020-06-16 10:42 | Day surgery (SDC) | payer OTHER, SELFPAY ==
[2020-03-24 14:33] VITALS: BMI 42.8
[2020-06-13 15:05] VITALS: BMI 42.3
[2020-06-16] VITALS (20 sets, daily range): BP systolic 114–152; BP diastolic 61–93; PULSE 80–107; RESP 10–22; TEMP 36.3–37.7; O2SAT 92–97; BMI 56.0
--- NOTE | 2020-06-16 11:00 | DI.RAD.S_ITS ---
PROCEDURE: XR KNEE RT 1TO2V INDICATIONS: post op films TECHNIQUE: 2 view(s) of the knee acquired. COMPARISON: [facility], CR, XR KNEE ARTHRITIC SERIES LT, 05/07/2020, 15:33. [facility], CR, XR KNEE LT 1TO2V, 03/24/2020, 10:57. FINDINGS: Bones: Patient is status post knee joint arthroplasty. Hardware components are in expected positions. Visualized bony structures are intact. Healed fracture of the proximal fibula. Soft tissues: Overlying postoperative changes are noted. IMPRESSION: Expected appearance of knee arthroplasty. Dictated by: Shahzad Hill M.D. on 06/16/2020 at 15:05 Approved by: Shahzad Hill M.D. on 06/16/2020 at 15:06
[2020-06-16] MEDS: ACETAMINOPHEN 325 MG TABLET 975 MG PO (11:38)
[2020-06-16] MEDS: PREGABALIN 75 MG CAPSULE PO (11:39)
[2020-06-16] MEDS: CELECOXIB 200 MG CAPSULE PO (11:39)
[2020-06-16] MEDS: LACTATED RINGERS 1,000 ML 42 ML IV ×2 (11:39→13:21)
--- NOTE | 2020-06-16 11:39 | SUR.PREOP ---
Dr Drew examined RLE and had a discussion with the patient about his scratches increased risk of infection. Patient stated that he wants to proceed with the surgery in spite of increased risk.
--- NOTE | 2020-06-16 11:48 | PM.PREOP ---
Pre-operative Note COVID-19 COVID-19 status: Negative Result date/Date tested (Pos, Neg/Pending): 06/14/20 Interval Note History & Physical reviewed/Exam performed by Physician: Yes Changes to H&P: No
--- NOTE | 2020-06-16 11:49 | P.OP_ITS ---
Operative Date/Time/Diagnoses Date of procedure: 06/16/20 Time of procedure: 14:26 Pre-op diagnosis: Right knee post traumatic osteoarthritis Post-op diagnosis: same Procedure & Clinicians Procedure: Right total knee replacement Same procedure as scheduled: Yes Indications: The patient has had progressively worsening right knee pain with radiographic changes consistent with arthritis. Non-operative management has failed and the patient has requested total knee replacement. The risks, benefits and alternatives to surgery were discussed with the patient prior to proceeding. Risks discussed included, but were not limited to, failure to relieve pain, stiffness, infection, nerve damage, deep venous thrombosis, pulmonary embolism, stroke, coma, heart attack, permanent paralysis and , as well as the potential need for eventual revision of the prosthetic. Surgeon: Mike Drew Ribbon Inker: Igor Bullock Anesthesia Type: General, Spinal and Local Operative Notes Findings: Severe tricompartmental osteoarthritis Closure Type: primary Specimen(s): none sent Prosthetic devices, grafts, tissues, transplants, or devices: Implants used in this procedure were manufactured by the [employer] and [employer] and included the BCS II Journey total knee replacement with a size 6 Oxinium left femur, a size 6 non porous tibial base plate with a 9 mm cross-linked polyethylene insert and a 35 mm oval Suyapa II patella. Applied: implant(s) Estimated Blood Loss (mL): 50 Blood products transfused: none Tourniquet time (min): 57 Procedure in detail: The patient was seen in the pre-operative area, where the patient identified the right knee as the operative site and this was marked with my initials. The patient received pre-operative antibiotics, and was taken to the operating room and placed on the operative table in the supine position. After satisfactory anesthesia, a multimedia coordinator out was performed. The right leg was encircled with a tourniquet about the proximal thigh, and the leg was prepared from the toes to the tourniquet with ChloroPrep in the usual fashion and draped through sterile drapes. The leg was elevated and exsanguinated with Eschmark bandage and the tourniquet inflated to 250 mmHg pressure. The knee was approached through an approximately 18 cm incision centered over the patella and carried into the knee through a medial parapatellar arthrotomy. The anterior osteophytes and soft tissues were removed. The rotational landmarks of Stephen's line and the transepicondylar axis were marked on the femur with electrocautery, and intramedullary guide holes for the femur and tibia were created. The distal femoral cut was made in 6 degrees of valgus using the intramedullary guide at the primary cut setting. The proximal tibial cut was then made using the intramedullary guide, taking 9 mm of bone off the less involved side. The extension gap was checked and the rotation of the femoral component confirmed with the gap balancing system. The anterior, posterior and chamfer cuts were then made. The posterior osteophytes and soft tissues were then removed. The posterior capsule was injected with part of a mixture of 60 ml 0.25% Marcaine mixed with 20 ml Exparel and 4 mg of morphine for post-operative pain control. The remainder of this mixture was injected into the capsule and subcutaneous tissues during cement curing. The tibia was prepared with the rotation set by an extra medullary guide. Trial tibial and femoral components were then placed and the intercondylar notch cut through the femoral trial. Range of motion was 0-130 degrees, with good stability throughout the range. The patella was then cut to accommodate the patellar prosthetic. There was no need for a lateral release. The trials were then removed, and the femoral hole plugged with a bone plug. The bone was prepared with pulsatile lavage, and dried with a sponge. Cement was applied and the final prosthetics placed. Excess cement was removed during and after cement curing. After confirming there was no extruded cement posteriorly, the final tibial insert was placed. The knee was copiously irrigated and the tourniquet deflated. Hemostasis was obtained. The capsule was closed with interrupted # 2 polyester suture. The subcutaneous layer was closed with 3-0 Vicryl, and the skin with a running 3-0 V-Lock suture and Dermabond. An Sy dressing was applied and the patient was taken to recovery having tolerated the procedure well. Complications: none Post-operative Condition: stable Disposition: PACU Plan for aftercare: The patient will be maintained on a standard total knee replacement protocol with weight bearing as tolerated. The patient will receive aspirin and sequential compression devices for DVT prophylaxis. The patient will be discharged home when safe for the home environment.
[2020-06-16] MEDS: CEFAZOLIN VIAL 3 GM in SODIUM CHLORIDE 0.9% 100 ML 200 ML IV (12:32)
--- NOTE | 2020-06-16 13:05 | SUR.OPER ---
Supine on padded OR bed. Pillow under head, arms secured on padded armboards <90 degree abduction. Safety belt across torso. Non-operative leg secured with tape over blanket over lower leg. Operative leg secured in DeMayo/Eddy positioner. Foam padded brace at thigh of operative leg.
[2020-06-16] MEDS: TRANEXAMIC ACID 1,000 MG VIAL 1000 MG INJ (13:13)
[2020-06-16] MEDS: BUPIVACAINE LIPOSOME 266 MG/20 ML VIAL INJ (13:13)
[2020-06-16] MEDS: MORPHINE 4 MG/ML INJ INJ (13:14)
[2020-06-16] MEDS: BUPIVACAINE 0.5% W/ EPI (PF) 30 ML VIAL INJ (13:19)
[2020-06-16] MEDS: SODIUM CHLORIDE 0.9% FLUSH 10 ML IV (13:20)
[2020-06-16] MEDS: ONDANSETRON 4 MG/2 ML INJ IV (18:52)
[2020-06-16] MEDS: LACTATED RINGERS 1,000 ML 100 ML IV (18:53)
[2020-06-16] MEDS: ACETAMINOPHEN 325 MG TABLET 650 MG PO (21:38)
[2020-06-16] MEDS: DOCUSATE 100 MG CAPSULE PO (21:38)
[2020-06-16] MEDS: LOSARTAN 50 MG TABLET 100 MG PO (21:38)
[2020-06-16] MEDS: ASPIRIN EC 81 MG TABLET PO (21:38)
[2020-06-16] MEDS: NYSTATIN POWDER 15GM 1 APPLIC TOP (21:39)
--- NOTE | 2020-06-16 22:18 | PC.NURSE ---
Admit/Evening Shift Note- Patient arrived to room via bed from PACU at 1555. Patient alert and oriented and able to make needs known to staff. Admission questions done, medications reviewed, physical assessment done, and skin check completed. yeasty rash noted to shira, new order received for nystatin powder. LINDSEY dressing and RAF Wrap to right knee. Dressing C/D/I and LINDSEY on and functioning properly. SCD's in place as ordered. Patient oriented to bed and bed controls, room, lights, menu, phone, bathroom, and call lucio/tv remote. Safety measures in place. Call lucio and phone within reach. will continue to monitor.
[2020-06-17 01:37] VITALS: BP 127/79; PULSE 89; RESP 18; TEMP 36.6; O2SAT 94
[2020-06-17] MEDS: LACTATED RINGERS 1,000 ML 100 ML IV (02:35)
[2020-06-17 05:30] VITALS: BP 133/66; PULSE 86; RESP 18; TEMP 36.6; O2SAT 95
[2020-06-17 05:40] LABS: Hematocrit 36.8 % (41-53); Hemoglobin 12.1 g/dL (13.5-17.5)
--- NOTE | 2020-06-17 06:05 | PC.NURSE ---
Bladder scanned at 0555 and 414 mL in the bladder. Straight catheter inserted at 0600 and 425 mL of dark yellow urine was removed from the bladder. No complications and catheter tip intact when removed.
--- NOTE | 2020-06-17 07:30 | PM.DS.1 ---
History of Present Illness History of Present Illness Date Patient Seen: 06/17/20 Time Patient Seen: 07:30 Chief complaint: RIGHT TKA Narrative: The history and physical is contained in the chart previously completed note. Please refer to that note for this information. Discharge Providers Provider Date of admission: 06/16/20 Discharge Date: 06/17/20 Consults: 06/16/20 16:13 Consult to Discharge Planning Routine Comment: Consult to Physical Therapy Evaluate & Treat Comment: Physician Instructions: postop TKA protocol Discharge provider: Mike Drew MD Summary Hospital Course Discharge Diagnosis: 1. Right knee posttraumatic osteoarthritis 2. Post hemorrhagic anemia 3. Urinary retention Hospital Course: The patient was admitted to the hospital and taken directly to the operating room June 16, 2020 where he underwent a right total knee replacement without complications. He did need a straight catheterization overnight. He was stable on postoperative day 1 and ready for discharge provided he can urinate spontaneously. Status at Discharge Cognitive/behavioral status at discharge: oriented Functional status at discharge: uses cane/walker Overall status at discharge: patient is progressing back to baseline Time Spent with Patient Time spent: Less than 30 minutes Exam Vital Signs (past 8 hours): - 06/17/20 01:37 06/17/20 05:30 Temperature 97.9 F 97.8 F Pulse Rate 89 86 Respiratory Rate 18 18 Blood Pressure 127/79 133/66 Pulse Oximetry 94 95 Oxygen Delivery Method Room Air Oxygen Flow Rate 0 Narrative Exam Narrative: Right knee wound is dressed with no drainage on the bandage. Calf is soft. Light touch and motion are intact in the right lower extremity. Objective Labs Result Diagrams: 06/17/20 05:15 Labs: Laboratory Results - last 24 hr 06/17/20 05:15 Hgb 12.1 L Hct 36.8 L [facility] Medical History (Updated 03/10/20 @ 14:29 by Valeri Flowers RN) Asthma Brain injury (1978) HTN (hypertension) Laceration (1978) Osteoarthritis Surgical History (Updated 06/16/20 @ 11:32 by Disha Gay RN) History of left knee surgery (~05/1990) Hx of arthroscopy of left knee Hx of arthroscopy of right knee (~2005) Hx of ileostomy (1983) S/P total knee arthroplasty Social History household members: children Smoking Status: Former smoker alcohol intake: never Discharge Assessment & Plan Assessment and Plan Assessment: The patient is stable postoperative day 1 with the exception of the fact that he required catheterization for urination last night. If he can spontaneously void this morning he should be able to go home. He has a mild post hemorrhagic anemia. This should not require any additional treatment. Plan of Treatment: Voiding trials this morning. Mobilize with therapy. Likely discharge home with follow-up in 10-14 days. The patient has narcotic pain reliever at home. He will receive a prescription for Vistaril. He has been instructed in the use of aspirin and activity for DVT prophylaxis. Discharge Plan Discharge Plan Patient Disposition: Home Discharge orders & Medications Discharge Orders: Discharge (Order); Ordered 06/17/20 Ordered By: Mike Drew Prescriptions: New acetaminophen 325 mg Tablet 650 mg PO TID 30 Days Qty: 180 RF: 0 aspirin 81 mg Tablet,Delayed Release (Dr/Ec) 81 mg PO BID 42 Days Qty: 84 RF: 0 oxycodone 5 mg Tablet 5 mg PO Q4H PRN (Reason: Pain, Moderate (4-6)) 30 Days RF: 0 hydroxyzine pamoate 25 mg Capsule 25 mg PO Q6HR PRN (Reason: Nausea) Qty: 30 RF: 0 Continued losartan 50 mg Tablet 100 mg PO BEDTIME RF: 0 meloxicam 15 mg Tablet 15 mg PO DAILY RF: 0 chlorthalidone 25 mg Tablet 12.5 mg PO DAILY RF: 0 tamsulosin 0.4 mg Capsule 0.4 mg PO DAILY RF: 0 albuterol sulfate 90 mcg/actuation Hfa Aerosol Inhaler 2 puff INHALATION Q4-6H PRN (Reason: Shortness Of Breath) RF: 0 Follow up/Referrals: Mike Drew MD [Physician] - 2 Weeks Diet/Activity/Treatments Diet: Diet as Tolerated and Regular Activity: You may bear weight as tolerated on your right leg. Cold/Heat Therapy: Apply ice for 15 minutes of every hour as needed to the right knee for pain control. Skin/Wound/Dressing Care Report to your healthcare provider any signs of infection, such as:: chills, fever, night sweats, increased pain, unusual drainage and unusual redness Dressing: You may remove the Chano wrap 3 days after surgery and shower normally with the deeper dressing in place. Remove the battery pack before showering. If the batteries run out you may replace them with double A batteries. If the deeper dressing becomes saturated with either water or blood, please call the office to have it evaluated. Visit Report/Discharge Packet Instructions: DI for Knee Replacement Stand Alone Forms: Surgery Discharge Discharge Data Attending Provider: Mike Drew VTE Deep Vein Thrombosis/Pulmonary Embolism Present on Admission: No
--- NOTE | 2020-06-17 08:54 | CM.DANOTE ---
Pt. a pleasant A&O x [address] Merlos that had a RTK surgery yesterday. This is his second - the first one being performed here in March. He is enthusiastic about going home and other than a request for a phone number for the medical records department (he has an insurance issue with the Sept. surgery since is out of network for his PPO) he denies needs. He has been unable to urinate since surgery and must do so prior to d/c. RN was administering flomax to assist with this. Patient is hopeful for resolution because his sister is expecting to pick him up at noon today. Outpt. PT/OT has been successfully arranged in [place] where he lives.
[2020-06-17 09:00] VITALS: BP 124/69; PULSE 92; RESP 16; TEMP 36.6; O2SAT 98
[2020-06-17] MEDS: CHLORTHALIDONE 25 MG TABLET 12.5 MG PO (09:23)
[2020-06-17] MEDS: ASPIRIN EC 81 MG TABLET PO (09:23)
[2020-06-17] MEDS: TAMSULOSIN 0.4 MG CAPSULE PO (09:23)
[2020-06-17] MEDS: DOCUSATE 100 MG CAPSULE PO (09:24)
[2020-06-17] MEDS: ACETAMINOPHEN 325 MG TABLET 650 MG PO (09:24)
[2020-06-17] MEDS: MELOXICAM 7.5 MG TABLET 15 MG PO (09:24)
--- NOTE | 2020-06-17 10:24 | PT.IIE ---
Current Diagnoses Unilateral post-traumatic osteoarthritis, right knee (06/16/20) Unspecified osteoarthritis, unspecified site (06/16/20) Surgery Performed Operation Date: 06/16/20 12:45 Actual Procedures p Total Knee Arthroplasty(Right) - Mike Drew MD Surgical History (Last Updated 06/16/20 @ 11:32 by Disha Gay, SAM) History of left knee surgery (~05/1990) Hx of arthroscopy of left knee Hx of arthroscopy of right knee (~2005) Hx of ileostomy (1983) S/P total knee arthroplasty Medical History (Last Updated 03/10/20 @ 14:29 by Valeri Flowers RN) Asthma Brain injury (1978) HTN (hypertension) Laceration (1978) Osteoarthritis Physical Therapy Inpatient Evaluation/Re-Eval M1 PT/OT-IP Prior Functional Status Start: 06/17/20 11:51 Freq: NEEDED Status: Active Protocol: Document 06/17/20 10:24 AB (Rec: 06/17/20 12:05 [id number]) Medical Review Prior Functional Status Medical History Reviewed Yes Communication able to make needs known Mobility and Gait Pt stated that he is modified independent with all mobilities and ambulation without AD but uses a hurrycane for long distance. Prior Functional Level (Other details) pt just had TKA on his L last march 2020 Social History Household Members children Living Arrangements House Number of Floors (Floors) One Floor Number of Stairs To Enter/Railing? 5 steps to enter with 1 rail ( stated that rail is in the middle of the steps and usually goes up with rail on the R and then down with rail on the L) Home Environment Standard Height Toilet,Tub/ Shower Home Equipment Front Wheel Walker,Hand Held Shower Additional Social History Comment pt has a hurrycane stated that he will do sponge bathing for the first 2 weeks pt's son will assist pt at home M2 PT-IP Current Condition Start: 06/17/20 11:51 Freq: NEEDED Status: Active Protocol: Document 06/17/20 10:24 AB (Rec: 06/17/20 12:05 AB [id number]) Physical Therapy Current Condition Current Condition Evaluation Date 06/17/20 Treatment Diagnosis s/p R TKA; difficulty in walking Onset Date 06/16/20 Weight Bearing Status Weight Bearing Status Weight Bear as Tolerated Allowed Weight Bearing Amount (enter % RLE WBAT or #) (%) M3 PT-IP Subjective Start: 06/17/20 11:51 Freq: NEEDED Status: Active Protocol: Document 06/17/20 10:24 AB (Rec: 06/17/20 12:05 [email or web address]) Subjective Physical Therapy Visit Type Type Initial Evaluation Visit Start Time 10:24 Visit Stop Time 11:13 Total Visit Minutes 49 Number of HEARING AID MECHANIC Visits 0 Physical Therapy Visit Comments Patient Comments pt is agreeable to do PT Therapy Pain Assessment Pain When Pain Assessed At Rest Pain Present Pain Present Pain Reported Location Knee Intensity 1 Scale Used Numeric (0 - 10) Pain Management Techniques Distraction,Modification of Treatment,Re-positioning, Timing of Activity with Medications M4 PT-IP Mobility and Gait Start: 06/17/20 11:51 Freq: NEEDED Status: Active Protocol: Document 06/17/20 10:24 AB (Rec: 06/17/20 12:05 [email or web address]) PT-Bed Mobility Assessment Supine to Sit Supine to Sit Standby Assistance,Bedrails PT-Transfer Assessment Sit to and From Stand Sit to and from Stand Standby Assistance Equipment Transfer Assistive Device Gait Belt,Front Wheeled Walker Orthotic/Prosthetic Devices or Brace: No Transfers Transfer Destination Toilet Transfer Technique ambulated using FWW Transfer Ability Level of Assist Standby Assistance Comments Mobility Comments completed supine to sit SBA. uses bed rail and pt stated that he has things on his side to assist him with bed mobility and usually his son also assists him. completed sit to stand SBA and requested to go to the toilet. ambulated to the toilet using FWW SBA. pt was able to maintain standing SBA while completing toileting. ambulated to the sink using fWW SBA and was able to maintain standing SBA while completing handwashing. ambulated to the chair using FWW SBA and rested. pt agreed to do the stairs. ambulated towards the stairs using FWW ~ 100 ft. completed up/down steps using 1 rail and SPC SBA. ambulated back to the room using FWW SBA. requested to use the toilet again and ambulated towards the toilet using FWW SBA. Left pt to use the toilet. Call light within reach. Gait Assessment Gait Gait Assistance Required: Standby Assistance Distance (Feet) 100 Able to Maintain Weight Bearing Status Yes During Gait Assistive Devices Assistive Device Gait Belt,Front Wheeled Walker Orthotic/Prosthetic Devices or Brace: No Gait Deviations General Gait Pattern Antalgic,Decreased Stride Length,Decreased Feet Clearance Factors Limiting Gait Function Factors Limiting Gait Function Decreased Activity Tolerance, Limited Range of Motion,Pain, Poor Balance Stair Climbing Assessment Evaluation Level of Assist On Stairs Standby Assistance Devices Stair Climbing Assistive Devices Straight Cane,Left Railing, Right Railing Technique/Endurance Stair Climbing Direction Ascend and Descend Stair Climbing Technique Step to Step Number of Steps Climbed 3 Query Text: Stair Climbing Set # Repetitions (reps) 1 Comments Stair Climbing Comments pt uses SPC and R rail ascending; SPC and L rail descending SBA PT-Balance Assessment Sitting Balance and Reactions Static Sitting Balance Ability Good Dynamic Sitting Balance Ability Good Standing Balance and Reactions Static Standing Balance Ability Fair Dynamic Standing Balance Ability Fair Device Used FWW M5 PT-IP Objective Assessments Start: 06/17/20 11:51 Freq: NEEDED Status: Active Protocol: Document 06/17/20 10:24 AB (Rec: 06/17/20 12:05 [place] [id number]) Orientation Orientation/Cognition Level of Alertness Alert Orientation Name,Age,Birthday,Month,Date, Year,Day of Week,Place, Situation Safety Awareness Understands Safety Issues Memory Description No Deficits Noted Gross Range of Motion Lower Extremity ROM Impairments R knee flexion ~ 70 deg Strength Lower Extremity Strength Assessment Right Impaired Hip 4-/5 Knee 3+/5 Coordination Assessment Gross Coordination Gross Coordination WNL Sensation Assessment Sensation Gross Sensation WNL Muscle Tone Muscle Tone WNL Yes M6 PT-IP Treatment Start: 06/17/20 11:51 Freq: NEEDED Status: Active Protocol: Document 06/17/20 10:24 AB ([facility]: 06[facility]17[facility]20 [facility] Physical Therapy Treatment Education Education Provided Precautions,Weight Bearing Status,Post-Op Packet,Safety M7 PT-IP Assessment and Plan Start: 06/17/20 11:51 Freq: NEEDED Status: Active Protocol: Document 06/17/20 10:24 AB (Rec: 06/17/20 12:05 [facility] PT Summary Assessment and Plan Potential Rehabilitation Potential Good Status of Condition at Evaluation Stable Summary Impairments Pain,ROM,Strength,Balance,Bed Mobility,Transfers,Gait, Activity Tolerance Assessment Summary pt requiring SBA with mobility and plans to go home today with his son to assist him. stated that he is set up for outpt PT. pt may go home when medically stable. Goals Bed Mobility Goal Independent Transfer Goal Independent,Front Wheeled Walker Gait Goal Independent,Front Wheel Walker Gait Distance 200 Other Goals up/down 4 steps 1 rail and SPC mod I Days to Meet Goals 3 Frequency of Treatment Frequency Of Treatment Twice a Day Treatment Plan Physical Therapy Treatment Plan Bed Mobility Training,Transfer Training,Gait Training, Therapeutic Exercise,Balance Retraining,Post Op Education, Discharge Planning,Hot or Cold Pack,Neuromuscular Re-ed, Coordination Retraining,Manual Therapy Recommendations To Nursing Amount of Assist Needed Standby Assistance Discharge Recommendations PT Discharge Recommendations Home with Assistance, Outpatient PT Transportation Needs at Discharge Private Vehicle
--- NOTE | 2020-06-17 12:30 | PC.NURSE ---
Patient is going to discharge home. Sy dressing cdi. O narcotics used this shift. He is doing well with meloxicam and tylenol. CMS wnl and ppx2. He has been discharged from physical therapy. He has voided a total of 150cc and is about to go again. His sister is going to pick him up around 1300.
== END 2020-06-17 14:08 | disposition home or self-care (01) ==
LOC: OR 10:47 → AC 13:28
PROVIDERS: Referring Provider Orthopaedic Surgery; Visit Provider Orthopaedic Surgery
PROC: 0SRC0JZ Replacement of Right Knee Joint with Synthetic Substitute, Open Approach (ICD-10-PCS; CPT 27447; principal; 2020-06-16 12:45)
DX: M17.11 Unilateral primary osteoarthritis, right knee (principal); I10 Essential (primary) hypertension; J45.909 Unspecified asthma, uncomplicated; Z72.0 Tobacco use; N40.0 Benign prostatic hyperplasia without lower urinary tract symptoms; E66.9 Obesity, unspecified; Z68.41 Body mass index [BMI] 40.0-44.9, adult
CPT/HCPCS: 27447; 36415; 73560; 85014; 85018; 97161; 97530; C1776; A9270; C9290; J0690; J1100; J2250; J2270; J2274; J2405; J2704; J3010